=== PATIENT | male | born 1945 | race Caucasian/White ===

== ENCOUNTER 2024-07-28 02:36 | Emergency (ER) | payer MEDICARE, BC ==
[2024-07-28] VITALS (7 sets, daily range): BP systolic 111–144; BP diastolic 74–87
[2024-07-28] MEDS ORDERED: NITROGLYCERIN 2% OINT UD 1 GM/PAK TD ONE (04:27)
[2024-07-28] MEDS ORDERED: NITROGLYCERIN 0.4 MG/TAB SL ONE ×2 (04:27)
[2024-07-28] MEDS ORDERED: ASPIRIN 81 MG/TAB PO ONE (04:27)
[2024-07-28 05:48] LABS: ACT PARTIAL THROMBO TIME 28.9 SECONDS (20.0-32.5); D-DIMER 0.56 mg/L (0.19-0.60); PROTHROMBIN TIME 10.3 SECONDS (9.0-12.5)
[2024-07-28 05:49] LABS: BASO% 0.3 % (0-3); EOS% 1.9 % (0-8); HEMATOCRIT 42.2 % (39.0-50.0); HEMOGLOBIN 13.9 g/dl (14.0-18.0); IMMATURE GRANULOCYTES 1.8 % (0.0-5.0); LYMPH% 19.4 % (15-41); MEAN CELL VOLUME 96.6 fL CALC (80.0-100.0); MEAN CORPUSCULAR HGB 31.8 pG CALC (26.0-32.0); MEAN CORPUSCULAR HGB CONC 32.9 g/dL CAL (32.0-36.0); MONO% 11.5 % (2-13); NEUT# 5.17 thou/uL (1.82-7.42); NEUT% 65.1 % (42-76); RED BLOOD COUNT 4.37 mill/uL (4.70-6.10); RED CELL DISTRI WIDTH 14.6 % (11.5-15.5)
[2024-07-28 05:51] LABS: ALBUMIN 4.9 g/dL (3.2-5.0); BILIRUBIN, TOTAL 0.6 mg/dL (0.2-1.3); CHOLESTEROL HDL RATIO 2.4 (<4.4 (CALC)); CREATININE 1.7 mg/dL (0.7-1.3); TOTAL PROTEIN 7.9 g/dL (6.3-8.2)
== END 2024-07-28 07:00 | disposition short-term general hospital (02) ==
LOC: ED 02:58 → ED-I 02:58 → ED 07:00
PROVIDERS: Emergency Medicine
DX: I21.4 Non-ST elevation (NSTEMI) myocardial infarction (principal); I25.10 Atherosclerotic heart disease of native coronary artery without angina pectoris; I10 Essential (primary) hypertension; E11.9 Type 2 diabetes mellitus without complications; E78.5 Hyperlipidemia, unspecified; Z95.1 Presence of aortocoronary bypass graft; Z95.5 Presence of coronary angioplasty implant and graft; Z95.0 Presence of cardiac pacemaker; Z79.01 Long term (current) use of anticoagulants; Z20.822 Contact with and (suspected) exposure to COVID-19